=== PATIENT | male | born 1945 | race Caucasian/White ===

== ENCOUNTER → 2021-09-09 | Outpatient (CLI) | payer MEDICARE ==
--- NOTE | 2021-09-09 22:40 | US ---
EXAMINATION TYPE: US kidneys/renal and bladder DATE OF EXAM: 09/09/2021 COMPARISON: NONE CLINICAL HISTORY: R33.9 URINARY RETENTION. EXAM MEASUREMENTS: Right Kidney: 13.2 x 6.0 x 6.0 cm Left Kidney: 11.6 x 6.4 x 5.4 cm Post Void Residual Volume: 2763 mL Right Kidney: hydronephrosis, 2.8cm exophytic cyst inferior pole Left Kidney: hydronephrosis Bladder: distended Bilateral Jets seen: no Normal Post Void Residual: no Severe bilateral hydronephrosis. Incidental exophytic 2.8 cm thin-walled cyst lower pole of the right kidney. The urinary bladder is at least moderately distended. Bilateral ureteral jets are not seen . Significant residual urine within bladder lumen after voiding. IMPRESSION: Severe bilateral hydronephrosis. At least moderately distended bladder with little emptyi ng on voiding. Further workup advised. Consider functional nuclear medicine study and/or CT exam to further evaluate.
== END | disposition home or self-care (01) ==
LOC: RADUSWWP 14:41
PROVIDERS: ATTEND Urology
DX: N13.30 Unspecified hydronephrosis (principal); N32.89 Other specified disorders of bladder
CPT/HCPCS: 76770

== ENCOUNTER → 2021-11-29 | Outpatient (CLI) | payer MEDICARE ==
--- NOTE | 2021-11-29 13:49 | US ---
EXAMINATION TYPE: US scrotum with doppler. Grayscale and color Doppler Duplex imaging performed of moe vicente scrotum. DATE OF EXAM: 11/29/2021 COMPARISON: NONE CLINICAL HISTORY: N50.89. Left side swelling. EXAM MEASUREMENTS: TESTICLES: Right Testicle: 4.1 x 2.5 x 2.9 cm Left Testicle: 4.3 x 3.0 x 3.1 cm EPIDIDYMIS HEAD: Right Epididymis: not seen Left Epididymis: not seen Doppler performed to assess for testicular vascularity; good bilateral color flow and waveforms are s een. There is no evidence of testicular torsion. Presence of hydroceles: no Presence of varicoceles: no Possible skin thickening on left side. IMPRESSION: There is increased flow to the left epididymis and possibly the left testicle. Correlate for epididym oorchitis. There is also associated skin thickening of the left scrotal sac.
== END | disposition home or self-care (01) ==
LOC: RADUSWWP 12:56
PROVIDERS: ATTEND Urology
DX: N50.89 Other specified disorders of the male genital organs (principal)
CPT/HCPCS: 76870; 93975

== ENCOUNTER 2022-10-27 07:28 | Observation (INO) | payer MEDICARE ==
[2022-10-27] MEDS ORDERED: SODIUM CHLORIDE 0.9% 1,000 ML IV STA (07:51)
[2022-10-27] MEDS ORDERED: NITROGLYCERIN SL TABS 0.4 MG TAB SUBLINGUAL STA ×3 (07:51)
[2022-10-27] MEDS ORDERED: ASPIRIN 81 MG PO STA (07:51)
--- NOTE | 2022-10-27 08:04 | ED ---
General Adult HPI - General Chief complaint: Chest Pain Stated complaint: chest pain Time Seen by Provider: 10/27/22 07:39 Source: patient, RN notes reviewed, old records reviewed Mode of arrival: ambulatory Limitations: no limitations - History of Present Illness Initial comments: Patient is a 77-year-old male with past medical history remarkable for h ypertension, prior hernia surgery, urinary retention who straight caths on a daily basis, who presents emergency Department with 2 weeks of on again off again chest pain. States he notices it mostly with exertion. 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 States the results with rest. He did experience the same symptoms yesterday while resting in a chair and it self resolved. States his pain is under more control this time is morbid discomfort substernally. His no history of CAD, heart attack. Presents for further evaluation at this time. Denies any abdominal pain but does state that he becomes nauseous when the pain is there. Denies any radiation of the pain. Has no other acute complaints. - Related Data Home Medications Medication Instructions Recorded Confirmed Bisoprolol-Hctz 5-6.25 mg [Ziac 1 tab PO DAILY 10/27/22 10/27/22 5-6.25 MG] Dorzolamide HCl/Pf [Dorzolamide 2% 1 drop LEFT EYE BID 10/27/22 10/27/22 Eye Drop] LORazepam [Ativan] 0.5 mg PO DAILY PRN 10/27/22 10/27/22 LORazepam [Ativan] 0.5 mg PO HS 10/27/22 10/27/22 amLODIPine [Norvasc] 10 mg PO DAILY 10/27/22 10/27/22 Allergies Allergy/AdvReac Type Severity Reaction Status Date / Time No Known Allergies Allergy Verified 10/27/22 09:34 Review of Systems ROS Statement: Those systems with pertinent positive or pertinent negative responses have been documented in the HPI. Review of Systems: CONST: Denies fever EYES: Denies blurry vision ENT: Denies nasal congestion C/V: Endorses mild chest discomfort. RESP: Denies shortness of breath GI: Denies abdominal pain : Denies dysuria SKIN: Denies rash. MSK: Denies joint pain. NEURO: Denies headache ROS Other: All systems not noted in ROS Statement are negative. Past Medical History Past Medical History: Hypertension History of Any Multi-Drug Resistant Organisms: None Reported Past Surgical History: No Surgical Hx Reported Past Psychological History: No Psychological Hx Reported Smoking Status: Former smoker Past Alcohol Use History: None Reported Past Drug Use History: None Reported General Exam - General Exam Comments Initial Comments: General: Appears in no acute distress. HEAD: Normal with no signs of head trauma. EYES: PERRLA, EOMI, conjunctiva normal, no discharge. ENT: Hearing grossly intact, normal oropharynx. RESPIRATORY: Clear breath sounds bilaterally. No wheezes, rales, or rhonchi. C/V: Regular rate and rhythm. S1 and S2 auscultated, no edema, peripheral pulses 2+ and intact throughout ABD: Abd is soft, nontender, nondistended EXT: Normal range of motion, no obvious deformity SKIN: No rashes or lesions observed on exposed skin. Old scar over the anterior abdomen which is from a prior hernia surgery. NEURO: Alert and oriented x 4. Cranial nerves II-XII intact. No focal sensory or strength deficits. Limitations: no limitations Course Vital Signs 10/27/22 10/27/22 10/27/22 07:35 07:53 08:00 Temperature 97.9 F Pulse Rate 69 71 54 L Respiratory 20 18 16 Rate Blood Pressure 145/86 133/86 O2 Sat by Pulse 99 97 Oximetry 10/27/22 10/27/22 10/27/22 08:10 08:30 08:40 Temperature Pulse Rate 72 68 64 Respiratory 17 18 19 Rate Blood Pressure 127/77 103/74 115/76 O2 Sat by Pulse 95 96 Oximetry 10/27/22 10/27/22 10/27/22 08:50 09:00 09:10 Temperature Pulse Rate 50 L 51 L 51 L Respiratory 8 L 14 15 Rate Blood Pressure 114/72 114/72 114/65 O2 Sat by Pulse 95 96 97 Oximetry 10/27/22 10/27/22 10/27/22 09:20 09:30 09:40 Temperature Pulse Rate 51 L 48 L 49 L Respiratory 17 16 18 Rate Blood Pressure 124/74 124/74 114/70 O2 Sat by Pulse Oximetry 10/27/22 10/27/22 10/27/22 09:50 10:00 10:10 Temperature Pulse Rate 50 L 47 L 50 L Respiratory 18 16 17 Rate Blood Pressure 117/70 117/70 116/68 O2 Sat by Pulse Oximetry 10/27/22 10/27/22 10/27/22 10:20 10:30 10:40 Temperature Pulse Rate 49 L 51 L 50 L Respiratory 19 15 17 Rate Blood Pressure 127/78 127/78 137/77 O2 Sat by Pulse Oximetry 10/27/22 10/27/22 10/27/22 10:50 11:00 11:10 Temperature Pulse Rate 50 L 54 L 53 L Respiratory 17 18 17 Rate Blood Pressure 130/73 130/73 129/79 O2 Sat by Pulse Oximetry 10/27/22 10/27/22 11:20 15:53 Temperature 97.9 F Pulse Rate 51 L 60 Respiratory 18 19 Rate Blood Pressure 131/74 146/73 O2 Sat by Pulse 95 Oximetry Medical Decision Making - Medical Decision Making Based on the patient's presentation and physical exam, patient is a 77-year-old male who presents towards the department with on again off again chest pain. Endorses that it seems to be associated with exertion. Seems somewhat anginal in nature. I'm concerned for possible ACS. I did recommend we obtain a cardiac workup including EKG, chest x-ray, cardiac labs. He will be given 324 mg of aspirin as well as nitroglycerin tablets. Patient was in agreement this plan. Vital signs within normal limits. EKG shows no signs of acute ischemia.Chest x-ray revealed no evidence of acute cardiopulmonary process. Laboratory studies are remarkable for an undetectable troponin. Remainder of labs are unremarkable. On reevaluation, patient is resting comfortably. Patient's nitroglycerin tablets and 10 mild effect on his pain. We discussed his workup. I would like to admit the hospital at this time with cardiology consult. He'll be admitted to a telemetry bed. He was in agreement this plan. I spoke with the admitting physician, Dr. Agosto who accepted the patient. He was admitted in stable condition. Was pt. sent in by a medical professional or institution (, PA, RUBBER TIRE CURER, urgent care, hospital, or [place] [facility] facility...) When possible be specific @ -No Did you speak to anyone other than the patient for history (EMS, parent, family, police, friend...)? What history was obtained from this source @ -No Did you review nursing and triage notes (agree or disagree)? Why? @ -I reviewed and agree with nursing and triage notes Were old charts reviewed (outside hosp., previous admission, EMS record, old EKG, old radiological studies, urgent care reports/EKG's, [place] health care facility records)? Report findings @ -No old charts were reviewed Differential Diagnosis (chest pain, altered mental status, abdominal pain women, abdominal pain men, vaginal bleeding, weakness, fever, dyspnea, syncope, headache, dizziness, GI bleed, back pain, seizure, CVA, palpatations, mental health)? @ -Differential Chest Pain: Stable Angina, Unstable Angina, STEMI, NSTEMI Aortic Dissection, Pneumothorax, Musculoskeletal, Esophageal Spasm GERD, Cholecystitis, Pancreatitis, Zoster, this is not meant to be an all-inclusive list. EKG interpreted by me (3pts min.). @ -As above X-rays interpreted by me (1pt min.). @ -Chest x-ray revealed no evidence of acute cardiopulmonary process. CT interpreted by me (1pt min.). @ -None done U/S interpreted by me (1pt. min.). @ -None done What testing was considered but not performed or refused? (CT, X-rays, U/S, labs)? Why? @ -None What meds were considered but not given or refused? Why? @ -None Did you discuss the management of the patient with other professionals (professionals i.e. , PA, RUBBER TIRE CURER, lab, RT, psych nurse, social work nurse, railway signal operator, teacher, certification officer, catalytic case operator)? Give summary @ -Yes, patient's admitting physician Dr. Agosto who accepted the patient. Was smoking cessation discussed for >3mins.? @ -No Was critical care preformed (if so, how long)? @ -No Were there social determinants of health that impacted care today? How? (Homelessness, low income, unemployed, alcoholism, drug addiction, transportation, low edu. Level, literacy, decrease access to med. care, penitentiary, rehab)? @ -No Was there de-escalation of care discussed even if they declined (Discuss DNR or withdrawal of care, Hospice)? DNR status @ -No What co-morbidities impacted this encounter? (DM, HTN, Smoking, COPD, CAD, Cancer, CVA, ARF, Chemo, Hep., AIDS, mental health diagnosis, sleep apnea, morbid obesity)? @ -COPD Was patient admitted / discharged? Hospital course, mention meds given and route, prescriptions, significant lab abnormalities, going to OR and other pertinent info. @ -Patient was admitted to observation telemetry. See above forr ED course. Undiagnosed new problem with uncertain prognosis? @ -No Drug Therapy requiring intensive monitoring for toxicity (Heparin, Nitro, Insulin, Cardizem)? @ -No Were any procedures done? @ -No Diagnosis/symptom? @ -Chest pain Acute, or Chronic, or Acute on Chronic? @ -Acute Uncomplicated (without systemic symptoms) or Complicated (systemic symptoms)? @ -Uncomplicated Side effects of treatment? @ -No Exacerbation, Progression, or Severe Exacerbation? @ -No Poses a threat to life or bodily function? How? (Chest pain, [place], [place], pneumonia, PE, COPD, DKA, ARF, appy, cholecystitis, CVA, Diverticulitis, Homicidal, Suicidal, threat to staff... and all critical care pts) @ -Yes, if untreated can result in significant morbidity mortality. - Lab Data Result diagrams: 10/27/22 12:45 10/27/22 08:01 Lab Results 10/27/22 10/27/22 10/27/22 Range/Units 08:01 08:01 08:01 WBC 9.6 (3.8-10.6) k/uL RBC 5.24 (4.30-5.90) m/uL Hgb 16.9 (13.0-17.5) gm/dL Hct 47.5 (39.0-53.0) % MCV 90.8 (80.0-100.0) fL MCH 32.3 (25.0-35.0) pg MCHC 35.6 (31.0-37.0) g/dL RDW 13.3 (11.5-15.5) % Plt Count 304 (150-450) k/uL MPV 7.7 Neutrophils % 63 % Lymphocytes % 22 % Monocytes % 7 % Eosinophils % 5 % Basophils % 1 % Neutrophils # 6.0 (1.3-7.7) k/uL Lymphocytes # 2.1 (1.0-4.8) k/uL Monocytes # 0.7 (0-1.0) k/uL Eosinophils # 0.5 (0-0.7) k/uL Basophils # 0.1 (0-0.2) k/uL PT 11.0 (9.0-12.0) sec INR 1.1 (<1.2) APTT 25.2 (22.0-30.0) sec Sodium 138 (137-145) mmol/L Potassium 3.7 (3.5-5.1) mmol/L Chloride 105 (98-107) mmol/L Carbon Dioxide 20 L (22-30) mmol/L Anion Gap 13 mmol/L BUN 15 (9-20) mg/dL Creatinine 1.21 (0.66-1.25) mg/dL Est GFR (CKD-EPI)AfAm 66 (>60 ml/min/1.73 sqM) Est GFR (CKD-EPI)NonAf 57 (>60 ml/min/1.73 sqM) Glucose 176 H (74-99) mg/dL Calcium 9.7 (8.4-10.2) mg/dL Magnesium 1.8 (1.6-2.3) mg/dL Total Bilirubin 0.8 (0.2-1.3) mg/dL AST 41 (17-59) U/L ALT 47 (4-49) U/L Alkaline Phosphatase 107 (38-126) U/L Troponin I (0.000-0.034) ng/mL Total Protein 8.2 (6.3-8.2) g/dL Albumin 4.7 (3.5-5.0) g/dL 10/27/22 Range/Units 08:01 WBC (3.8-10.6) k/uL RBC (4.30-5.90) m/uL Hgb (13.0-17.5) gm/dL Hct (39.0-53.0) % MCV (80.0-100.0) fL MCH (25.0-35.0) pg MCHC (31.0-37.0) g/dL RDW (11.5-15.5) % Plt Count (150-450) k/uL MPV Neutrophils % % Lymphocytes % % Monocytes % % Eosinophils % % Basophils % % Neutrophils # (1.3-7.7) k/uL Lymphocytes # (1.0-4.8) k/uL Monocytes # (0-1.0) k/uL Eosinophils # (0-0.7) k/uL Basophils # (0-0.2) k/uL PT (9.0-12.0) sec INR (<1.2) APTT (22.0-30.0) sec Sodium (137-145) mmol/L Potassium (3.5-5.1) mmol/L Chloride (98-107) mmol/L Carbon Dioxide (22-30) mmol/L Anion Gap mmol/L BUN (9-20) mg/dL Creatinine (0.66-1.25) mg/dL Est GFR (CKD-EPI)AfAm (>60 ml/min/1.73 sqM) Est GFR (CKD-EPI)NonAf (>60 ml/min/1.73 sqM) Glucose (74-99) mg/dL Calcium (8.4-10.2) mg/dL Magnesium (1.6-2.3) mg/dL Total Bilirubin (0.2-1.3) mg/dL AST (17-59) U/L ALT (4-49) U/L Alkaline Phosphatase (38-126) U/L Troponin I <0.012 (0.000-0.034) ng/mL Total Protein (6.3-8.2) g/dL Albumin (3.5-5.0) g/dL - EKG Data -: EKG Interpreted by Me EKG Comments: 12-lead Electrocardiogram Interpretation Note EKG was reviewed and interpreted by myself. 12-lead ECG performed at 0746 is interpreted by me as revealing [normal sinus rhythm] at a rate of 67 beats per minute. [place] is normal. SC interval is 200 ms, QRS duration is 90 ms, QTc is 414 ms.. [There were no ST or T wave abnormalities to suggest myocardial ischemia or injury]. [R wave progression across the precordium was satisfactory]. [By my interpretation this EKG is non-diagnostic for acute ischemia]. No prior EKG for comparison. Disposition Clinical Impression: Chest pain Disposition: ADMITTED IP TO THIS [facility] Condition: Stable Time of Disposition: 09:10
[2022-10-27 08:11] LABS: Basophils # (A) 0.1 k/uL (0-0.2); Basophils % (A) 1 %; Eosinophils # (A) 0.5 k/uL (0-0.7); Eosinophils % (A) 5 %; HCT 47.5 % (39.0-53.0); HGB 16.9 gm/dL (13.0-17.5); Lymphocytes # (A) 2.1 k/uL (1.0-4.8); Lymphocytes % (A) 22 %; MCH 32.3 pg (25.0-35.0); MCHC 35.6 g/dL (31.0-37.0); MCV 90.8 fL (80.0-100.0); Mean Platelet Volume 7.7; Monocytes # (A) 0.7 k/uL (0-1.0); Monocytes % (A) 7 %; Neutrophils % (A) 63 %; Platelet Count 304 k/uL (150-450); RBC 5.24 m/uL (4.30-5.90); RDW 13.3 % (11.5-15.5); WBC 9.6 k/uL (3.8-10.6)
[2022-10-27 08:20] LABS: INR 1.1 (<1.2)
[2022-10-27 08:21] LABS: Partial Thromboplastin Time 25.2 sec (22.0-30.0)
--- NOTE | 2022-10-27 08:30 | XR ---
EXAMINATION TYPE: XR chest 2V DATE OF EXAM: 10/27/2022 8:26 AM COMPARISON: None TECHNIQUE: XR chest 2V Frontal and lateral views of the chest. CLINICAL INDICATION:Male, 77 years old with history of Chest Pain; FINDINGS: Lungs/Pleura: There is flattening of the diaphragm with increased lucency of the lungs. No evidence o f pneumothorax, pleural effusion or focal consolidation. Senescent parenchymal changes. Pulmonary vascularity: Unremarkable. Heart/mediastinum: Cardiomediastinal silhouette is unremarkable. Musculoskeletal: No acute osseous pathology. Levoscoliotic curvature. Multilevel degenerative changes of the visualized spine. IMPRESSION: 1. No acute cardiopulmonary disease process. 2. COPD changes.
[2022-10-27 08:31] LABS: Albumin 4.7 g/dL (3.5-5.0); Calcium 9.7 mg/dL (8.4-10.2); Magnesium 1.8 mg/dL (1.6-2.3); Potassium 3.7 mmol/L (3.5-5.1); Total Bilirubin 0.8 mg/dL (0.2-1.3); Total Protein 8.2 g/dL (6.3-8.2)
[2022-10-27] MEDS ORDERED: NALOXONE 0.4 MG/ML 1 ML VIAL IV PRN (09:38)
[2022-10-27] MEDS ORDERED: HEPARIN SODIUM 1,000 UN/ML (10ML VL) IV ONE (12:38)
[2022-10-27] MEDS ORDERED: HEPARIN SODIUM 1,000 UN/ML (10ML VL) IV PRN (12:38)
[2022-10-27] MEDS ORDERED: HEPARIN SOD,PORK IN 0.45% NACL 25,000 UNIT in 0.45% NACL 1 250ML.BAG IV SCH (12:45)
[2022-10-27 13:01] LABS: Basophils # (A) 0.1 k/uL (0-0.2); Basophils % (A) 1 %; Eosinophils # (A) 0.2 k/uL (0-0.7); Eosinophils % (A) 2 %; HCT 47.2 % (39.0-53.0); Lymphocytes # (A) 1.8 k/uL (1.0-4.8); Lymphocytes % (A) 21 %; MCHC 33.8 g/dL (31.0-37.0); MCV 91.9 fL (80.0-100.0); Mean Platelet Volume 7.3; Monocytes # (A) 0.5 k/uL (0-1.0); Monocytes % (A) 6 %; Neutrophils % (A) 68 %; Platelet Count 286 k/uL (150-450); RBC 5.14 m/uL (4.30-5.90); RDW 12.9 % (11.5-15.5); WBC 8.8 k/uL (3.8-10.6)
[2022-10-27 13:07] LABS: Partial Thromboplastin Time 24.9 sec (22.0-30.0); Prothrombin Time 10.9 sec (9.0-12.0)
[2022-10-27] MEDS ORDERED: ASPIRIN 325 MG TAB PO STA (13:30)
[2022-10-27] MEDS ORDERED: NITROGLYCERIN SL TABS 0.4 MG TAB SUBLINGUAL PRN (13:30)
[2022-10-27] MEDS ORDERED: ALPRAZolam 0.5 MG TAB PO PRN (13:30)
[2022-10-27] MEDS ORDERED: ALPRAZolam 0.25 MG TAB PO PRN (13:30)
[2022-10-27] MEDS ORDERED: ATORVASTATIN 80 MG TAB PO STA (13:30)
--- NOTE | 2022-10-27 13:30 | P.CRDCN ---
History of Present Illness Consult date: 10/27/22 Consult reason: chest pain History of present illness: History of present illness: This is a 77-year-old male patient with no previous cardiac history and does not follow with a field representatives director. He has a past medical history of hypertension and urinary retention. Patient states that he had a stress test done about 10 years ago which was normal in the office. He was treated that time for low iron. We have been asked to see him for chest pain. 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 The pain is nonradiating but sometimes he feels it in his epigastric area. He normally goes to the gym for an hour every day and walks on a treadmill but has been doing less activity due to pain.,. Family member mentions that he does have anxiety problems. He is not an active smoker. Patient is seen today in the emergency center waiting for a bed on the [facility] ion unit. EKG is sinus rhythm with no acute ST changes CBC within normal limits. Potassium 3.7, BUN 15 creatinine 1.2. Blood sugar 176. Troponin negative 2. Liver function tests within normal limits. Chest x-ray no acute cardiopulmonary disease. COPD changes. Home cardiac medications: Ziac 56.25 mg daily, amlodipine 10 mg daily Review Of Systems: At the time of my evaluation: Constitutional: No fever, no chills. No weakness, fatigue or lethargy. EENT: No headache. No dizziness. Lungs: No shortness of breath, cough, no sputum production. No wheezing. Cardiovascular: Reported chest pain, no lower extremity edema. No palpitations. No paroxysmal nocturnal dyspnea. No orthopnea. No lightheadedness or dizziness. No syncopal episodes. Abdominal: No abdominal pain. No nausea, vomiting. No diarrhea. No constipation. No bloody or tarry stools. Genitourinary: Chronic urinary retention. Musculoskeletal: No myalgias. No muscle weakness, no frequent falls. No back pain. No neck pain. Integumentary: No wounds. No rash. No unusual bruising. Neurologic: No aphasia. No facial droop. No change in mentation. No head injury. No headache. Psychiatric: No depression. No anxiety. Endocrine: No abnormal blood sugars. Physical examination: Gen: This is a 77-year-old male. He is resting on ER stretcher and appears to be comfortable and in no acute distress. VS: reviewed HEENT: Head is atraumatic, normocephalic. Pupils equal, round. Sclerae is anicteric. NECK: Supple. No JVD. No lymphadenopathy. No thyromegaly. LUNGS: Clear to auscultation. No wheezes or rhonchi. No intercostal retractions. HEART: Regular rate and rhythm. No murmur. ABDOMEN: Soft. Bowel sounds are present. No masses. No tenderness. EXTREMITIES: No pedal edema. No calf tenderness. NEUROLOGICAL: Patient is awake, alert and oriented x3. Cranial nerves 2 through 12 are grossly intact. Assessment: Unstable angina Hypertension Urinary retention chronic Plan: Start patient on heparin protocol Repeat troponins 2 Resume patient's antihypertension medications Obtain 2-D echocardiogram and Doppler study to assess cardiac structure and function Discussed with patient options of either undergoing stress testing if troponins are negative or undergoing definitive testing with cardiac catheterization. We will plan to move forward with cardiac catheterization in the morning but will re-evaluate patient in the morning following additional testing. Thank you kindly for this consultation. Nurse practitioner note has been reviewed, I agree with documented findings and plan of care. Patient was seen and examined. Past Medical History Past Medical History: Hypertension History of Any Multi-Drug Resistant Organisms: None Reported Past Surgical History: No Surgical Hx Reported Past Psychological History: No Psychological Hx Reported Smoking Status: Former smoker Past Alcohol Use History: None Reported Past Drug Use History: None Reported Medications and Allergies Home Medications Medication Instructions Recorded Confirmed Type Bisoprolol-Hctz 5-6.25 mg [Ziac 1 tab PO DAILY 10/27/22 10/27/22 History 5-6.25 MG] Dorzolamide HCl/Pf [Dorzolamide 2% 1 drop LEFT EYE BID 10/27/22 10/27/22 History Eye Drop] LORazepam [Ativan] 0.5 mg PO DAILY PRN 10/27/22 10/27/22 History LORazepam [Ativan] 0.5 mg PO HS 10/27/22 10/27/22 History amLODIPine [Norvasc] 10 mg PO DAILY 10/27/22 10/27/22 History Allergies Allergy/AdvReac Type Severity Reaction Status Date / Time No Known Allergies Allergy Verified 10/27/22 09:34 Physical Exam Vitals: Vital Signs Temp Pulse Resp BP Pulse Ox 10/27/22 08:50 50 L 8 L 114/72 95 10/27/22 08:40 64 19 115/76 96 10/27/22 08:30 68 18 103/74 95 10/27/22 08:10 72 17 127/77 10/27/22 08:00 54 L 16 133/86 97 10/27/22 07:53 71 18 10/27/22 07:35 97.9 F 69 20 145/86 99 Intake and Output 10/26/22 10/27/22 10/27/22 22:59 06:59 14:59 Other: Weight 83.915 kg Results 10/27/22 12:45 10/27/22 08:01 Cardiac Enzymes 10/27/22 10/27/22 Range/Units 08:01 08:01 AST 41 (17-59) U/L Troponin I <0.012 (0.000-0.034) ng/mL Coagulation 10/27/22 Range/Units 08:01 PT 11.0 (9.0-12.0) sec APTT 25.2 (22.0-30.0) sec CBC 10/27/22 Range/Units 08:01 WBC 9.6 (3.8-10.6) k/uL RBC 5.24 (4.30-5.90) m/uL Hgb 16.9 (13.0-17.5) gm/dL Hct 47.5 (39.0-53.0) % Plt Count 304 (150-450) k/uL Comprehensive Metabolic Panel 10/27/22 Range/Units 08:01 Sodium 138 (137-145) mmol/L Potassium 3.7 (3.5-5.1) mmol/L Chloride 105 (98-107) mmol/L Carbon Dioxide 20 L (22-30) mmol/L BUN 15 (9-20) mg/dL Creatinine 1.21 (0.66-1.25) mg/dL Glucose 176 H (74-99) mg/dL Calcium 9.7 (8.4-10.2) mg/dL AST 41 (17-59) U/L ALT 47 (4-49) U/L Alkaline Phosphatase 107 (38-126) U/L Total Protein 8.2 (6.3-8.2) g/dL Albumin 4.7 (3.5-5.0) g/dL Current Medications Generic Name Dose Route Start Last Admin Trade Name Freq PRN Reason Stop Dose Admin Heparin Sodium (Porcine) 5,000 unit 10/27/22 21:00 Heparin Sodium,Porcine/Pf 5,000 Unit/0.5 Ml Syringe SQ Q12HR KIRTI Naloxone HCl 0.2 mg 10/27/22 09:38 Naloxone 0.4 Mg/Ml 1 Ml Vial IV Q2M PRN Opioid Reversal Intake and Output 10/26/22 10/27/22 10/27/22 22:59 06:59 14:59 Other: Weight 83.915 kg Patient Weight 10/28/22 06:59 Weight 83.915 kg 10/27/22 08:01 10/27/22 08:01
[2022-10-27] MEDS ORDERED: HEPARIN SODIUM,PORCINE/PF 5,000 UNIT/0.5 ML SYRINGE SQ SCH (21:00)
[2022-10-28] MEDS ORDERED: LOPERAMIDE 2 MG CAP PO PRN (05:37)
[2022-10-28] MEDS: ONDANSETRON 4 MG/2 ML VIAL IVP PRN ×2 (05:41→16:23)
[2022-10-28] MEDS ORDERED: HEPARIN SODIUM,PORCINE 10,000 UNIT in SODIUM CHLORIDE 0.9% 1,000 ML IRRIGATION PRN (07:00)
[2022-10-28] MEDS ORDERED: HEPARIN SODIUM,PORCINE 2,500 UNIT in SODIUM CHLORIDE 0.9% 250 ML IRRIGATION PRN (07:00)
[2022-10-28] MEDS ORDERED: ASPIRIN 325 MG TAB PO STA (07:17)
[2022-10-28] MEDS: BISOPROLOL-HCTZ 5-6.25 MG 1 EACH TAB PO SCH (08:43)
[2022-10-28] MEDS: amLODIPine 10 MG TAB PO SCH (08:44)
--- NOTE | 2022-10-28 08:55 | P.HPIM ---
History of Present Illness H&P Date: 10/28/22 Chief Complaint: chest pain This is a 77-year-old male who is admitted for chest pain. 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 He describes the pain as substernal with some radiation to the epigastric area. He denies any radiation of pain through the shoulders down his arms or diaphoresis or nausea. He is seen sitting in bed this morning. Has been maintained on a heparin drip. Heart catheterization is planned for this [facility]. Review of Systems Constitutional: Denies chills, Denies fever Cardiovascular: Reports chest pain, Denies dyspnea on exertion, Denies lightheadedness, Denies syncope Respiratory: Denies cough, Denies dyspnea Gastrointestinal: Denies abdominal pain, Denies indigestion Musculoskeletal: Denies arm numbness/tingling, Denies leg numbness/tingling Neurological: Denies headaches, Denies syncope Past Medical History Past Medical History: Hypertension Additional Past Medical History / Comment(s): iron deficiency, pt states he takes OTC iron supplements History of Any Multi-Drug Resistant Organisms: None Reported Past Surgical History: Hernia Repair Additional Past Surgical History / Comment(s): four left eye surgeries Past Psychological History: No Psychological Hx Reported Smoking Status: Former smoker Past Alcohol Use History: None Reported Past Drug Use History: None Reported Medications and Allergies Home Medications Medication Instructions Recorded Confirmed Type Bisoprolol-Hctz 5-6.25 mg [Ziac 1 tab PO DAILY 10/27/22 10/27/22 History 5-6.25 MG] Dorzolamide HCl/Pf [Dorzolamide 2% 1 drop LEFT EYE BID 10/27/22 10/27/22 History Eye Drop] LORazepam [Ativan] 0.5 mg PO DAILY PRN 10/27/22 10/27/22 History LORazepam [Ativan] 0.5 mg PO HS 10/27/22 10/27/22 History amLODIPine [Norvasc] 10 mg PO DAILY 10/27/22 10/27/22 History Allergies Allergy/AdvReac Type Severity Reaction Status Date / Time No Known Allergies Allergy Verified 10/27/22 09:34 Physical Exam Vitals: Vital Signs Temp Pulse Pulse Resp BP BP Pulse Ox 10/28/22 07:15 98.7 F 63 16 146/81 97 10/28/22 03:37 98.1 F 56 L 18 131/78 98 10/27/22 23:31 98.0 F 60 16 134/67 96 10/27/22 23:00 54 L 16 117/76 92 L 10/27/22 22:00 54 L 16 130/77 93 L 10/27/22 21:00 57 L 16 133/82 96 10/27/22 20:00 70 16 144/88 95 10/27/22 15:53 97.9 F 60 19 146/73 95 10/27/22 14:00 61 12 126/77 10/27/22 13:00 58 L 25 H 126/77 10/27/22 12:00 126/77 10/27/22 11:20 51 L 18 131/74 10/27/22 11:10 53 L 17 129/79 10/27/22 11:00 54 L 18 130/73 10/27/22 10:50 50 L 17 130/73 10/27/22 10:40 50 L 17 137/77 10/27/22 10:30 51 L 15 127/78 10/27/22 10:20 49 L 19 127/78 10/27/22 10:10 50 L 17 116/68 10/27/22 10:00 47 L 16 117/70 10/27/22 09:50 50 L 18 117/70 10/27/22 09:40 49 L 18 114/70 10/27/22 09:30 48 L 16 124/74 10/27/22 09:20 51 L 17 124/74 10/27/22 09:10 51 L 15 114/65 97 10/27/22 09:00 51 L 14 114/72 96 10/27/22 08:50 50 L 8 L 114/72 95 Intake and Output 10/27/22 10/28/22 10/28/22 22:59 06:59 14:59 Intake Total 191.162 Balance 191.162 Intake: Intake, IV Titration 191.162 Amount Heparin Sod,Pork in 0.45% 191.162 NaCl 25,000 unit In 0.45 % NaCl 1 250ml.bag @ 12 UNITS/KG/HR 10.07 mls/hr IV .Q24H [facility] Rx#: [id number] Other: Voiding Method Self-Catheterization # Voids 1 Weight 83.915 kg - Constitutional General appearance: cooperative, no acute distress - EENT Eyes: EOMI, PERRLA - Neck Neck: normal ROM, no rigidity - Respiratory Respiratory: bilateral: CTA - Cardiovascular Rhythm: regular Heart sounds: normal: S1, S2 - Gastrointestinal General gastrointestinal: normal bowel sounds, soft - Integumentary Integumentary: normal, normal turgor - Psychiatric Psychiatric: A&O x's 3, appropriate affect, intact judgment & insight Results CBC & Chem 7: 10/27/22 12:45 10/27/22 08:01 Labs: Abnormal Lab Results - Last 24 Hours (Table) 10/27/22 10/28/22 Range/Units 18:56 07:05 APTT 46.7 H 38.6 H (22.0-30.0) sec Assessment and Plan (1) Chest pain Current Visit: Yes Status: Acute Code(s): R07.9 - CHEST PAIN, UNSPECIFIED SNOMED Code(s): 36172217 (2) Hypertension Current Visit: Yes Status: Acute Code(s): I10 - ESSENTIAL (PRIMARY) HYPERTENSION SNOMED Code(s): 29093906 Plan: Cardiology has been consulted and heart cath has been ordered. Pending results of testing today patient may be discharged later this evening, if cleared by consults. Patient seen and evaluated by nurse practitioner, physician in agreement with plan
[2022-10-28] MEDS ORDERED: VERAPAMIL 2.5 MG/ML 2 ML AMP ONE (09:56)
[2022-10-28] MEDS ORDERED: HEPARIN SODIUM 1,000 UN/ML (10ML VL) ONE (10:11)
[2022-10-28] MEDS ORDERED: fentaNYL (PF) 50 MCG/ML 2 ML AMP ONE (10:11)
[2022-10-28] MEDS: MIDAZOLAM 2 MG/2 ML VIAL IV ONE ×2 (10:22→11:22)
[2022-10-28] MEDS ORDERED: fentaNYL (PF) 50 MCG/ML 2 ML AMP IV ONE (10:22)
[2022-10-28] MEDS ORDERED: SODIUM CHLORIDE 0.9% 1,000 ML IV ONE (10:23)
[2022-10-28] MEDS ORDERED: LIDOCAINE 1% INJ 10MG/ML (5 ML VIAL-PF) SQ ONE (10:23)
[2022-10-28] MEDS: VERAPAMIL SYRINGE (5 MG/10 ML) INTRAARTER ONE ×2 (10:24→10:58)
[2022-10-28] MEDS: HEPARIN SODIUM 1,000 UN/ML (10ML VL) IV ONE ×2 (10:36→11:03)
[2022-10-28 10:38] LABS: African American GFR (CKD) 66.7 (60.0-200.0); Anion Gap 11.9 mmol/L (10.00-18.00); BUN/Creat Ratio 19.58 Ratio (12.00-20.00); Blood Urea Nitrogen 23.5 mg/dL (9.0-27.0); Calcium 9.6 mg/dL (8.7-10.3); Carbon Dioxide 23.1 mmol/L (20.0-27.5); Non-African American GFR(CKD) 57.6 (60.0-200.0)
[2022-10-28] MEDS ORDERED: CLOPIDOGREL 75 MG TAB ONE (10:58)
[2022-10-28] MEDS ORDERED: CLOPIDOGREL 75 MG TAB PO ONE (11:00)
[2022-10-28] MEDS: IOPAMIDOL-370 125ML BTL INJ ONE ×2 (11:03→11:13)
--- NOTE | 2022-10-28 11:17 | CA ---
Transthoracic Echo Report Name: James Velazquez Age: 77 Gender: M : 1945 Exam Date: 10/28/2022 09:02 Exam Location: [address] Echo Ht (in): 68 Wt (lb): 185 Ordering Physician: Catarino Mercer MD ([id number]) Attending/Referring Phys: Sylvie CUI Burglar Alarm Mechanic Rizwana Esteban RDCS Procedure CPT: Indications: Chest Pain Cardiac Hx: Technical Quality: Fair Contrast 1: Total Dose (mL): Contrast 2: Total Dose (mL): MEASUREMENTS (Male / Female) Normal Values 2D ECHO LV Diastolic Diameter PLAX 4.1 cm 4.2 - 5.9 / 3.9 - 5.3 cm LV Systolic Diameter PLAX 1.6 cm IVS Diastolic Thickness 1.2 cm 0.6 - 1.0 / 0.6 - 0.9 cm LVPW Diastolic Thickness 1.2 cm 0.6 - 1.0 / 0.6 - 0.9 cm LV Relative Wall Thickness 0.6 LVOT Diameter 1.9 cm LA Volume 50.5 cm??? 18 - 58 / 22 - 52 cm??? M-MODE Aortic Root Diameter MM 3.0 cm LA Systolic Diameter MM 4.8 cm LA Ao Ratio MM 1.6 AV Cusp Separation MM 1.3 cm DOPPLER AV Peak Velocity 185.9 cm/s AV Peak Gradient 13.8 mmHg AV Mean Velocity 109.6 cm/s AV Mean Gradient 5.8 mmHg AV Velocity Time Integral 32.9 cm LVOT Peak Velocity 86.9 cm/s LVOT Peak Gradient 3.0 mmHg AV Area Cont Eq pk 1.4 cm??? MV Area PHT 2.6 cm??? Mitral E Point Velocity 82.9 cm/s Mitral A Point Velocity 78.5 cm/s Mitral E to A Ratio 1.1 MV Deceleration Time 288.0 ms MV E' Velocity 5.0 cm/s Mitral E to MV E' Ratio 16.5 TR Peak Velocity 165.8 cm/s TR Peak Gradient 11.0 mmHg Right Ventricular Systolic Press 16.0 mmHg FINDINGS Left Ventricle Mildly increased septal wall thickness. Normal left ventricular systolic function with no obvious regional wall motion abnormalities. Left ventricular cavity size normal. Left ventricular ejection fraction is estimated at 55-60 %. Right Ventricle Normal right ventricular size and function. Right ventricular systolic pressure within normal limits. Right Atrium Normal right atrial size. Left Atrium Normal left atrial size. Mitral Valve Structurally normal mitral valve. Mild mitral annular calcification. Mild mitral regurgitation. Aortic Valve Trileaflet aortic valve. Diffuse thickening (sclerosis) of the aortic valve cusps without reduced excursion. Trace aortic regurgitation. Tricuspid Valve Structurally normal tricuspid valve. Mild tricuspid regurgitation. Pulmonic Valve Trace pulmonic regurgitation. Pericardium No pericardial effusion. Aorta Normal size aortic root and proximal ascending aorta. CONCLUSIONS Normal LV function Mild mitral regurgitation Previewed by: Dr. Catarino Mercer MD (Electronically Signed) Final Date: 28 October 2022 11:16
[2022-10-28] MEDS ORDERED: IOPAMIDOL-370 100ML BTL INJ ONE (11:29)
[2022-10-28 11:34] LABS: INR 1.02 (0.90-1.11); Prothrombin Time 11.5 sec (9.9-11.9)
[2022-10-28] MEDS ORDERED: ATROPINE SULFATE 0.1 MG/ML 10ML SYRINGE IV PRN (11:38)
[2022-10-28] MEDS ORDERED: NITROGLYCERIN SL TABS 0.4 MG TAB SUBLINGUAL PRN (11:38)
[2022-10-28] MEDS ORDERED: RX INFO: IV CONTRAST WAS GIVEN 1 EACH MISC MISCELLANE PRN (11:38)
[2022-10-28] MEDS ORDERED: ZOLPIDEM 5 MG TAB PO PRN (11:38)
--- NOTE | 2022-10-28 11:44 | P.CARDCATH ---
Date of Procedure: 10/28/22 Description of Procedure: PERCUTANEOUS TRANSLUMINAL CORONARY ANGIOPLASTY CLINICAL INFORMATION: The patient is a 77-year-old male with a known history of hypertension who presented with symptoms of new onset angina pectoris, underwent cardiac catheterization by Dr. Mercer and was found to have severe stenosis involving the mid RCA . Recommendations were made regarding angioplasty and stenting. The procedure as well as the risks and the complications were discussed with the patient who was in full understanding and agreement. PROCEDURE: A 6 Dominican 0.75 AL guiding catheter was introduced into the system. After cannulating the right coronary ostium a 0.014 BMW J wire was advanced across the lesion and positioned distally. Following that a 2.5 x 12 mm Treck balloon was advanced and inflated at 8 atmosphere. Following that a 3.5 x 18 mm Xience wale point stent was deployed. It was dilated at 16 deon, after removing the balloon another 3.5 x 12 mm Xience wale point was positioned distal to the first one and dilated at 16 deon. After the last inflation, after appropriate wait, the balloon and the guidewire were withdrawn back into the guiding catheter. Images were obtained and repeated. Those images reveal stable successful stenting. At that point, the guiding catheter, the balloon, and guidewire were removed. The sheath was removed. Hemostasis was obtained with deployment of a TR band. There were no immediate complications. The patient was returned to the room in stable condition. Of note, the patient received an additional 2000 units of heparin as well as Plavix. His ACT was followed. There was no immediate complications. He had no chest discomfort or EKG changes with the inflations. RESULTS: Successful stenting of the mid RCA with reduction of stenosis from 95 % to less than 5 %. RECOMMENDATIONS: The patient will continue on aspirin and Plavix for 6 months without any interruption in addition to aggressive coronary risks modifications. The findings and recommendations were discussed with the patient and the family, they are in full understanding and agreement. Duration of sedation: 29 minutes
[2022-10-28] MEDS ORDERED: SODIUM CHLORIDE 0.9% 1,000 ML in EMPTY BAG 1 BAG IV SCH (11:45)
--- NOTE | 2022-10-28 11:51 | CC ---
CARDIAC CATHETERIZATION REPORT INDICATION: Unstable angina. PROCEDURE NOTE: After obtaining informed consent, left heart catheterization and coronary angiogram were performed via the right radial artery using 3.5 right Annette and a size 4 left Annette catheter. The patient tolerated the procedure well without any obvious immediate complications. Left ventricular dynamics were obtained using the left Annette catheters. The patient received moderate conscious sedation. Total sedation time was 45 minutes. The right radial artery access was obtained using a modified Seldinger technique. Catheters and wires were floated into the ascending aorta under fluoroscopic guidance. A Glidewire was used to enter into the ascending aorta. The patient received a total of 10 mg of verapamil and 4000 units of heparin per protocol. FINDINGS: 1. Hemodynamics: Left ventricular end-diastolic pressure is 8 to 10 mm. There is no significant gradient across the aortic valve. 2. Left ventriculogram: Left ventriculogram was not performed. 3. Angiographic data: a.Right coronary artery: Right coronary artery is a large dominant vessel and shows a focal 95% stenosis in the mid RCA. b.Left main coronary artery appears calcified, but is free of significant stenosis, divides into left anterior descending coronary artery and circumflex coronary artery. LAD and its branches, circumflex coronary artery and its branches are free of significant stenosis. CONCLUSION: Focal 95% stenosis involving mid RCA. PLAN: The patient will undergo angioplasty with stent placement of the same. MMODL / IJN: [id number] /
[2022-10-28 12:34] LABS: Basophils # (A) 0.09 X 10*3/uL (0.00-0.10); Eosinophils # (A) 0.38 X 10*3/uL (0.04-0.35); Eosinophils % (A) 4.4 %; HCT 45.8 % (39.6-50.0); HGB 15.3 g/dL (13.0-17.0); Immature Grans, Automated 0.3 %; Lymphocytes # (A) 2.26 X 10*3/uL (0.90-5.00); MCHC 33.4 g/dL (32.0-37.0); MCV 92.9 fL (80.0-97.0); Mean Platelet Volume 10.1 fL (9.5-12.2); Monocytes # (A) 0.82 X 10*3/uL (0.20-1.00); Monocytes % (A) 9.4 %; NRBC Per 100 WBC 0 /100 WBCS (0.0-0.0); Neutrophils # (A) 5.12 X 10*3/uL (1.80-7.70); Neutrophils % (A) 58.9 %; Platelet Count 313 X 10*3/uL (140-440); RBC 4.93 X 10*6/uL (4.40-5.60)
[2022-10-28 13:49] VITALS: BMI 28.1
[2022-10-28] MEDS ORDERED: LORazepam 0.5 MG TAB PO PRN (16:28)
[2022-10-28] MEDS: MAG HYDROX/AL HYDROX/SIMETH 30 ML CUP PO PRN (20:02)
[2022-10-28] MEDS ORDERED: LORazepam 0.5 MG TAB PO SCH (21:00)
[2022-10-29] MEDS: MAG HYDROX/AL HYDROX/SIMETH 30 ML CUP PO PRN (08:02)
[2022-10-29] MEDS: BISOPROLOL-HCTZ 5-6.25 MG 1 EACH TAB PO SCH (08:04)
[2022-10-29] MEDS: amLODIPine 10 MG TAB PO SCH (08:04)
[2022-10-29 08:05] LABS: African American GFR (CKD) 68 (>60 ml/min/1.73 sqM); Anion Gap 6 mmol/L; Blood Urea Nitrogen 23 mg/dL (9-20); Calcium 8.7 mg/dL (8.4-10.2); Carbon Dioxide 24 mmol/L (22-30); Chloride 108 mmol/L (98-107); Glucose 133 mg/dL (74-99); Non-African American GFR(CKD) 59 (>60 ml/min/1.73 sqM); Potassium 3.8 mmol/L (3.5-5.1); Sodium 138 mmol/L (137-145)
[2022-10-29 08:51] VITALS: BP 122/72; PULSE 79; RESP 16; TEMP 98.4
--- NOTE | 2022-10-29 08:51 | P.DS ---
Providers Date of admission: 10/27/22 09:38 Attending physician: Alhaji Agosto Consults: 10/27/22 09:38 Consult Physician Routine Consulting Provider: Cardiology Clarissa Consult Reason/Comments: chest pain Do you want consulting provider notified?: Yes 10/28/22 11:38 Consult Physician Routine Consulting Provider: Nazia Romo Consult Reason/Comments: Post Interventional patient Do you want consulting provider notified?: Already Contacted Primary care physician: Alhaji Agosto Hospital Course: This is a discharge summary on a patient with 77-year-old white male who essentially had unstable angina. The patient was admitted for cardiac catheterization had stent of RCA with the patient is doing quite well and we discharged once cleared by cardiology. Statin with anticoagulation and a ppropriate postop medications have been instituted. The patient understands his appropriate protocols and will follow-up with me in about 5-7 days. Patient Condition at Discharge: Stable Plan - Discharge Summary New Discharge Prescriptions: New Aspirin 81 mg PO DAILY #90 tab Atorvastatin [Lipitor] 40 mg PO DAILY #90 tab Nitroglycerin Sl Tabs [Nitrostat] 0.4 mg SUBLINGUAL Q5M PRN #50 tab PRN Reason: Chest Pain Clopidogrel [Plavix] 75 mg PO DAILY #90 tab Continue LORazepam [Ativan] 0.5 mg PO HS Dorzolamide HCl/Pf [Dorzolamide 2% Eye Drop] 1 drop LEFT EYE BID Bisoprolol-Hctz 5-6.25 mg [Ziac 5-6.25 MG] 1 tab PO DAILY LORazepam [Ativan] 0.5 mg PO DAILY PRN PRN Reason: Anxiety amLODIPine [Norvasc] 10 mg PO DAILY Discharge Medication List Bisoprolol-Hctz 5-6.25 mg [Ziac 5-6.25 MG] 1 tab PO DAILY 10/27/22 [History] Dorzolamide HCl/Pf [Dorzolamide 2% Eye Drop] 1 drop LEFT EYE BID 10/27/22 [History] LORazepam [Ativan] 0.5 mg PO DAILY PRN 10/27/22 [History] LORazepam [Ativan] 0.5 mg PO HS 10/27/22 [History] amLODIPine [Norvasc] 10 mg PO DAILY 10/27/22 [History] Aspirin 81 mg PO DAILY #90 tab 10/29/22 [Rx] Atorvastatin [Lipitor] 40 mg PO DAILY #90 tab 10/29/22 [Rx] Clopidogrel [Plavix] 75 mg PO DAILY #90 tab 10/29/22 [Rx] Nitroglycerin Sl Tabs [Nitrostat] 0.4 mg SUBLINGUAL Q5M PRN #50 tab 10/29/22 [Rx] Follow up Appointment(s)/Referral(s): Alhaji Agosto MD [Primary Care Provider] - 1 Week Discharge Disposition: HOME SELF-CARE
[2022-10-29] MEDS ORDERED: ATORVASTATIN 40 MG TAB PO SCH (09:00)
[2022-10-29] MEDS ORDERED: ASPIRIN 81 MG PO SCH (09:00)
[2022-10-29] MEDS ORDERED: CLOPIDOGREL 75 MG TAB PO SCH (09:00)
--- NOTE | 2022-10-29 10:47 | P.PN ---
Subjective Progress Note Date: 10/29/22 History of present illness: This is a 77-year-old male patient with no previous cardiac history and does not follow with a vibration analyst. He has a past medical history of hypertension and urinary retention. Patient states that he had a stress test done about 10 years ago which was normal in the office. He was treated that time for low iron. We have been asked to see him for chest pain. 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 The pain is nonradiating but sometimes he feels it in his epigastric area. He normally goes to the gym for an hour every day and walks on a treadmill but has been doing less activity due to pain.,. Family member mentions that he does have anxiety problems. He is not an active smoker. Patient is seen today in the emergency center waiting for a bed on the observation unit. EKG is sinus rhythm with no acute ST changes CBC within normal limits. Potassium 3.7, BUN 15 creatinine 1.2. Blood sugar 176. Troponin negative 2. Liver function tests within normal limits. Chest x-ray no acute cardiopulmonary disease. COPD changes. Home cardiac medications: Ziac 56.25 mg daily, amlodipine 10 mg daily 10/29 Yesterday, patient underwent cardiac catheterization and stent of the RCA with Dr. Jolly. Patient denies having any chest pain or shortness of breath and is anxious to be discharged home. Patient has been started on Plavix Lipitor and aspirin. Vital signs have been stable and hall monitor has been sinus rhythm. Physical examination: Gen: This is a 77-year-old male. He is resting in bed and appears to be comfortable and in no acute distress. VS: reviewed HEENT: Head is atraumatic, normocephalic. Pupils equal, round. Sclerae is anicteric. NECK: Supple. No JVD. No lymphadenopathy. No thyromegaly. LUNGS: Clear to auscultation. No wheezes or rhonchi. No intercostal retractions. HEART: Regular rate and rhythm. No murmur. ABDOMEN: Soft. No tenderness. EXTREMITIES: No pedal edema. No calf tenderness. NEUROLOGICAL: Patient is awake, alert and oriented x3. Cranial nerves 2 through 12 are grossly intact. Assessment: Unstable angina Hypertension Urinary retention chronic Plan: Continue patient's cardiac medications Patient is cleared for discharge from cardiology and may follow-up with Dr. Jolly in the office. Nurse practitioner note has been reviewed, I agree with documented findings and plan of care. Patient was seen and examined. Objective - Vital Signs Vital signs: Vital Signs Temp 98.4 F 10/29/22 07:45 Pulse 79 10/29/22 07:45 Resp 16 10/29/22 07:45 BP 122/72 10/29/22 07:45 Pulse Ox 96 10/29/22 07:45 FiO2 Intake & Output 10/28/22 10/29/22 10/29/22 18:59 06:59 18:59 Intake Total 1312.162 Output Total 100 Balance 1212.162 Weight 83.915 kg Intake: IV 100 Intake, IV Titration 772.162 Amount Heparin Sod,Pork in 0.45% 191.162 NaCl 25,000 unit In 0.45 % NaCl 1 250ml.bag @ 12 UNITS/KG/HR 10.07 mls/hr IV .Q24H [facility] Rx#: [id number] Sodium Chloride 0.9% 1, 581 000 ml In Empty Bag 1 bag @ 1 ML/KG/HR 83.915 mls/ hr IV .[id number] [facility] Rx#: [id number] Oral 440 Output: Emesis 100 Other: Voiding Method Self-Catheterization Self-Catheterization Self-Catheterization # Voids 1 1 - Labs CBC & Chem 7: 10/28/22 07:05 10/29/22 06:51 Labs: Abnormal Lab Results - Last 24 Hours (Table) 10/28/22 10/28/22 10/29/22 Range/Units 07:05 07:05 06:51 Eosinophils # 0.38 H (0.04-0.35) X 10*3/uL Chloride 108 H (98-107) mmol/L BUN 23 H (9-20) mg/dL Est GFR (CKD-EPI)NonAf 57.6 L (60.0-200.0) Glucose 159 H 133 H (70-110) mg/dL
== END 2022-10-29 11:45 | disposition home or self-care (01) ==
LOC: EC 07:28 → 6NMEDSUR 09:38
PROVIDERS: ADMIT Family Medicine; ATTEND Family Medicine
DX: I25.110 Atherosclerotic heart disease of native coronary artery with unstable angina pectoris (principal); I34.0 Nonrheumatic mitral (valve) insufficiency; I10 Essential (primary) hypertension; J44.9 Chronic obstructive pulmonary disease, unspecified; E61.1 Iron deficiency; R33.9 Retention of urine, unspecified; F41.9 Anxiety disorder, unspecified; Z79.899 Other long term (current) drug therapy; Z87.891 Personal history of nicotine dependence; Z98.890 Other specified postprocedural states
CPT/HCPCS: 96366 ×2; 96375; 96376; 96361; 96365; 99285; 36415; 94760; 93005; 93306; 93458; 80053; 80048 ×2; 83735; 84484; 85025 ×2; 85610 ×2; 85730 ×2; 71046; 99152; 99153 ×3; G0378 ×3; C1769 ×3; C9600; C1887; C1894; C1725; C1874 ×2; J2250; J2405; J2001; J3010; J1644 ×3; Q9967 ×2

== ENCOUNTER → 2024-03-09 | Outpatient (CLI) | payer MEDICARE ==
--- NOTE | 2024-03-09 16:39 | US ---
EXAMINATION TYPE: US kidneys/renal and bladder DATE OF EXAM: 03/09/2024 COMPARISON: 10/11/2021 CLINICAL INDICATION: Male, 78 years old with history of R10.9 UNSPECIFIED ABDOMINAL PAIN; rt flank pa in, known rt renal cyst EXAM MEASUREMENTS: Right Kidney: 12.5 x 3.5 x 3.8 cm Left Kidney: 12.3 x 3.7 x 4.7 cm Right Kidney: 3.7 x 3.7 x 3.3cm inferior pole cyst Left Kidney: No hydronephrosis or masses seen Bladder: wnl There is no evidence for hydronephrosis at this point in time. No nephrolithiasis is seen. No herminia s are identified. The urinary bladder is anechoic. Bilateral ureteral jets are seen. IMPRESSION: 1. No evidence for obstructive uropathy. 2. Right inferior simple appearing renal cyst.
== END | disposition home or self-care (01) ==
LOC: RADUSWWP 14:38
PROVIDERS: ATTEND Urology
DX: N28.1 Cyst of kidney, acquired (principal)
CPT/HCPCS: 76770

== ENCOUNTER → 2024-10-14 | Outpatient (CLI) | payer MEDICARE ==
--- NOTE | 2024-10-16 21:28 | PE ---
EXAMINATION TYPE: PET CT fusion skull to thigh DATE OF EXAM: 10/14/2024 COMPARISON: No pertinent comparison CT Prior PET/CT: No prior PET/CT CLINICAL INDICATION: Male, 79 years old with history of C61 MALIGNANT NEOPLASM OF PROSTATE, TECHNIQUE: Following the intravenous administration of 4.81 mCi of Gallium-68 labeled PSMA, whole [place] dy images are performed from the skull base to the midthigh. Images are reviewed on the computer in the coronal, axial, and sagittal planes. Reconstructed rotating images are created on [employer] and reviewed on the computer. A localization and attenuation correction CT is performed i n conjunction with the PET scan. DLP: 706.43 mGycm SCAN: Initial FINDINGS: NECK: There is normal radiotracer distribution through salivary glands. No suspicious uptake THORAX: No suspicious uptake ABDOMEN:There is normal radiotracer excretion through the renal collecting system. Normal uptake wit hin the liver and spleen. No suspicious uptake PELVIS: There may be slight increase signal along the right posterior lateral prostate measuring 10.9 8. Image 233. Primary could be considered. OSSEOUS STRUCTURES: No suspicious uptake LOCALIZATION CT: Coronary artery calcification is present. COMPARISON: None IMPRESSION: 1. No suspicious foci of radiotracer to suggest metastatic disease. [facility], , 10/16/2024 9:26 PM
== END | disposition home or self-care (01) ==
LOC: RADPETMAIN 09:03
PROVIDERS: ATTEND Urology
DX: C61 Malignant neoplasm of prostate (principal)
CPT/HCPCS: 78815; A9596